=== PATIENT | female | born 1995 | race Caucasian/White ===

== ENCOUNTER 2018-04-30 03:09 | Emergency (ER) | payer SELFPAY ==
[~2018-04-30] VITALS: Ht 165.1 cm; Wt 47.6 kg
[2018-04-30 03:15] VITALS: Ht 165.1 cm; Wt 47.6 kg
[2018-04-30 06:53] VITALS: BP 110/73
== END 2018-04-30 06:53 | disposition home or self-care (01) ==
LOC: ED 03:09
DX: S90.562A Insect bite (nonvenomous), left ankle, initial encounter (principal); L03.116 Cellulitis of left lower limb; W57.XXXA Bitten or stung by nonvenomous insect and other nonvenomous arthropods, initial encounter; Y93.89 Activity, other specified; Y92.89 Other specified places as the place of occurrence of the external cause; Y99.8 Other external cause status